=== PATIENT | male | born 1960 | race Caucasian/White ===

== ENCOUNTER 2017-02-20 19:04 | Emergency (ER) | payer OTHER ==
[2017-02-20] MEDS ORDERED: 0.9 % SODIUM CHLORIDE 1,000 ML IV ONE ×3 (19:18→22:53)
[2017-02-20] MEDS ORDERED: 0.9 % SODIUM CHLORIDE 1,000 ML IV SCH ×3 (19:30→23:00)
[2017-02-20 19:38] LABS: BASOPHILS % 0.6 (0.0-1.5); EOSINOPHILS % 1.4 % (0.0-6.8); MEAN CORPUSCULAR HEMOGLOBIN 29.8 pg (28.0-34.0); MEAN CORPUSCULAR VOLUME 90.4 fl (80.0-100.0); MONOCYTES % 6.5 % (0.0-11.0)
[2017-02-20 19:49] LABS: eGFR (African) > 60; eGFR (Non-African) > 60
[2017-02-20] MEDS ORDERED: INSULIN REGULAR, HUMAN 100 UNIT/ML 3ML VIAL IV ONE (20:17)
[2017-02-20] MEDS ORDERED: LEVOFLOXACIN 500MG/D5W 100ML 500 MG in PREMIX BAG 1 BAG IV ONE (20:20)
[2017-02-20] MEDS ORDERED: LEVOFLOXACIN 500MG/D5W 100ML 0 ML IV ONE (20:26)
[2017-02-20] MEDS ORDERED: DOXYCYCLINE MONOHYDRATE 100 MG CAPSULE PO ONE (20:42)
--- NOTE | 2017-02-20 21:36 | ED Physician Documentation ---
Chest Pain - HISTORIAN Historian: patient - HPI Stated Complaint: cold sym/chest pain Chief Complaint: Chest Pain Additional Information: sharp through and through pain mid sternum to mid back over last 24 hours Onset: days ago (1) Timing: sudden onset, still present Duration: sudden-onset Last known Well Date: 02/18/17 Last Known Well Time: 00:00 Last known Well Code/Unknown Code: Unknown Context: activity Severity: moderate Quality: sharp, stabbing Front/Back of Body, Lg (Color): 1 - pain 2 - pain Chest Pain Radiation: back Chest Pain Signs/Symptoms: diaphoresis, tachycardia, weakness. denies: nausea, vomiting, cool extremities, dizziness, dyspnea, tachypnea, hypotension, palpitations Worsened By: deep breaths Relieved By: rest Further Comments: no - ROS CONST: recent illness (head cold) MS/LYMPH: none GI/: abdominal pain, nausea EYES/ENT: denies: problems with vision, sore throat SKIN/ENDO: none NEURO/PSYCH: none - PAST HX MS risk factors: hypertension, diabetes Type 2, hyperlipidemia DVT/PE Risk Factors: none TAD/AAA risk factors: none Neuro deficit: none GI disease: GERD Lung disease: COPD Surgeries/Procedures: cardiac stent Immunizations: UTD Allergies/Adverse Reactions: Allergies Allergy/AdvReac Type Severity Reaction Status Date / Time amoxicillin Allergy Verified 02/20/17 19:19 ceftriaxone sodium Allergy Verified 02/20/17 19:19 [From Rocephin] erythromycin base Allergy Verified 02/20/17 19:19 exenatide [From Byetta] Allergy Verified 02/20/17 19:19 levofloxacin [From Levaquin] Allergy Verified 02/20/17 19:19 mushroom Allergy Verified 02/20/17 19:19 onion Allergy Verified 02/20/17 19:19 Penicillins Allergy Verified 02/20/17 19:19 pioglitazone HCl [From Actos] Allergy Verified 02/20/17 19:19 shellfish derived Allergy Verified 02/20/17 19:19 strawberry Allergy Verified 02/20/17 19:19 Sulfa (Sulfonamide Allergy Verified 02/20/17 19:19 Antibiotics) tomato Allergy Verified 02/20/17 19:19 tramadol Allergy Verified 02/20/17 19:19 Home Medications: Ambulatory Orders Medication Instructions Recorded Albuterol Sulfate [Proair 90 mcg IH QID 02/20/17 Respiclick] Aspirin EC [Ecotrin] 81 mg PO DAILY 02/20/17 Atorvastatin Calcium 40 mg PO HS 02/20/17 Blood-Glucose Calib. Control 1 each MC QID 02/20/17 [Accu-Chek] Citalopram Hydrobromide 40 mg PO DAILY 02/20/17 [Citalopram HBr] Clopidogrel Bisulfate [Clopidogrel] 75 mg PO DAILY 02/20/17 Cyclobenzaprine HCl 5 mg PO DAILY PRN 02/20/17 Diclofenac Sodium 100 gm TP BID 02/20/17 Epinephrine [Epipen 2-Edwin] 0.3 mg IM PRN PRN 02/20/17 Fluticasone Propionate [Flonase 1 spray NS DAILY 02/20/17 Nasal [place]] Gabapentin [Neurontin] 600 mg PO QID 02/20/17 HYDROmorphone HCL [Dilaudid] 4 mg PO Q4-6 PRN 02/20/17 Insulin NPH/Reg [Humulin 70-30 57 unit SQ 0730 02/20/17 Vial] Insulin NPH/Reg [Humulin 70-30 64 unit SQ 1700 02/20/17 Vial] Levothyroxine Sodium [Synthroid] 25 mcg PO 0700 02/20/17 Lisinopril [Zestril] 10 mg PO DAILY 02/20/17 Metformin HCl [Glucophage] 1,[place] [address] 02/20/17 Methotrexate Sodium [Rheumatrex] 10 mg PO WEEK 02/20/17 Metoprolol Tartrate [Lopressor] 25 mg PO BID 02/20/17 Multivitamin [Tab-A-Randall] 1 each PO DAILY 02/20/17 Nitroglycerin [Nitroquick] 0.4 mg SL Q5M 02/20/17 Omeprazole [Prilosec] 20 mg PO BID 02/20/17 SUMAtriptan SUCCINATE [Imitrex] 25 mg PO DIRECTED PRN 02/20/17 Topiramate [Topamax] 100 mg PO BID 02/20/17 Zolpidem Tartrate 10 mg PO HS 02/20/17 clonazePAM [Klonopin] 0.25 mg PO BID PRN 02/20/17 - SOCIAL HX Smoking History: cigarettes Alcohol Use: none Drug Use: none - FAMILY HX Family HX: other (dm) - VITAL SIGNS Vital Signs: Vital Signs Temp Pulse Resp BP Pulse Ox 98.4 F 102 H 16 128/97 96 02/20/17 19:05 02/20/17 19:05 02/20/17 19:05 02/20/17 19:05 02/20/17 19:05 - REVIEWED ASSESSMENTS Nursing Assessment Reviewed: Yes Vitals Reviewed: Yes Progress - Results/Orders Results/Orders: cbc, cmp, vbg, trop, amylase, ua, ekg, cxr ordered - Progress Progress: pt. given 2 1/2 liters ns in er, 20 units of humulin R, insulin drip at 7 units/ hr, D5 1/2 ns at 30 units/hr Critical Care Note - Critical Care Note Total Time (mins): 0 ED Results Lab/Radiology - Lab Results Lab Results: Lab Results 02/20/17 02/20/17 02/20/17 19:20 19:20 19:20 WBC 11.20 K/ul K/ul (4.00-12.00) RBC 4.90 M/ul M/ul (3.90-5.20) Hgb 14.6 g/dL g/dL (12.0-18.0) Hct 44.3 % % (37.0-53.0) MCV 90.4 fl fl (80.0-100.0) MCH 29.8 pg pg (28.0-34.0) MCHC 32.9 g/dL g/dL (30.0-36.0) RDW 13.4 % % (11.3-14.3) Plt Count 338 K/mm3 K/mm3 (130-400) Neut % (Auto) 62.5 % % (39.0-79.0) Lymph % (Auto) 27.7 % % (16.0-50.0) [place] % (Auto) 6.5 % % (0.0-11.0) Eos % (Auto) 1.4 % % (0.0-6.8) Baso % (Auto) 0.6 (0.0-1.5) Neut # 7.0 # k/uL # k/uL (1.4-7.7) Lymph # 3.1 # k/uL # k/uL (0.6-4.0) Gordon # 0.7 # k/uL # k/uL (0.0-0.9) Eos # 0.2 # k/uL # k/uL (0.0-0.6) Baso # 0.1 # k/uL # k/uL (0.0-0.5) Reactive Lymphs % 1.4 % % (0.0-5.0) Reactive Lymphs # 0.2 # k/uL # k/uL (0.0-0.8) Sodium 130 mmol/L L mmol/L (136-145) Potassium 3.8 mmol/L mmol/L (3.5-5.0) Chloride 96 mmol/L L mmol/L (98-110) Carbon Dioxide 28 mmol/L mmol/L (20-32) BUN 12 mg/dL mg/dL (10-26) Creatinine 1.1 mg/dL mg/dL (0.4-1.5) Est GFR ( Amer) > 60 (60 - ) Est GFR (Non-Af Amer) > 60 (60 - ) Glucose 514 mg/dL H mg/dL (70-99) Calcium 10.5 mg/dL mg/dL (8.5-10.5) Total Bilirubin 1.1 mg/dL mg/dL (0.2-1.2) AST 14 U/L U/L (0-41) ALT 17 U/L U/L (0-45) Alkaline Phosphatase 114 U/L U/L (46-116) Troponin I < 0.03 ng/mL L ng/mL (0.03-0.06) Total Protein 8.0 g/dL g/dL (6.0-8.5) Albumin 4.9 g/dL g/dL (3.0-5.5) - Radiology Radiology Impressions: cxr neg - Orders Orders: ED Orders Category Date Time Status Place Saline Lock/IV Now Care 02/20/17 19:13 Active CHEST 2 VIEW [CHEST P.A.&LAT 2 VIEWS] [RAD] Stat Exams 02/20/17 Taken AMYLASE Routine Lab 02/20/17 21:15 Received CBC/PLATELET/DIFF Routine Lab 02/20/17 19:20 Completed CMP Routine Lab 02/20/17 19:20 Completed TROPONIN I (cTnI) Routine Lab 02/20/17 19:20 Completed URINALYSIS Routine Lab 02/20/17 20:16 Ordered VENOUS BLOOD GAS Routine Lab 02/20/17 20:45 Received 0.9 % Sodium Chloride [Normal Saline] 1,000 ml Med 02/20/17 19:30 Ordered IV .Q1H 0.9 % Sodium Chloride [Normal Saline] 1,000 ml Med 02/20/17 20:30 Ordered IV .Q1H Doxycycline Monohydrate [Vibramycin] Med 02/20/17 20:42 Discontinued 100 mg PO NOW ONE Insulin Regular, Human [Humulin R] Med 02/20/17 20:17 Discontinued 20 unit IV NOW ONE Levofloxacin 500Mg/D5w 100Ml [Levaquin] 100 ml Med 02/20/17 20:26 Discontinued IV .STK-MED Levofloxacin 500Mg/D5w 100Ml [Levaquin] 500 mg Med 02/20/17 20:20 Discontinued Premix Bag [Premix Fluid] 1 bag IV NOW EKG WITH COMPARISON Routine Ther 02/20/17 Ordered Chest Pain Physical Exam - EXAM General Appearance: alert, moderate distress, hyperventilating (on presentation) EENT: eye inspection normal, ENT inspection normal, pharynx normal, no signs of dehydration, MINNIE, no nystagmus, TM's nml Neck: nml inspection Respiratory: chest non-tender, nml breath sounds, other (tachypnia). No: decreased air movement, wheezes, rales, rhonchi CVS: reg. rate & rhythm. No: no murmur, no gallop, no friction rub Abdomen: soft, no organomegaly, normal bowel sounds, tenderness (epigastrium) Skin: warm/dry, normal color Extremities: non-tender, normal range of motion, no evidence of injury, no edema Neuro: oriented X3, CN's nml as tested, motor nml, sensation nml, mood/affect nml, cognition normal Discharge Clincal Impression: DKA (diabetic ketoacidoses) Qualifiers: Diabetes mellitus type: type 2 Diabetes mellitus complication detail: without coma Qualified Code(s): E13.10 - Other specified diabetes mellitus with ketoacidosis without coma Home Medications: Ambulatory Orders Albuterol Sulfate [Proair Respiclick] 90 mcg IH QID 02/20/17 Aspirin EC [Ecotrin] 81 mg PO DAILY 02/20/17 Atorvastatin Calcium 40 mg PO HS 02/20/17 Blood-Glucose Calib. Control [Accu-Chek] 1 each MC QID 02/20/17 Citalopram Hydrobromide [Citalopram HBr] 40 mg PO DAILY 02/20/17 Clopidogrel Bisulfate [Clopidogrel] 75 mg PO DAILY 02/20/17 Cyclobenzaprine HCl 5 mg PO DAILY PRN 02/20/17 Diclofenac Sodium 100 gm TP BID 02/20/17 Epinephrine [Epipen 2-[place]] 0.3 mg IM PRN PRN 02/20/17 Fluticasone Propionate [Flonase Nasal [place]] 1 spray NS DAILY 02/20/17 Gabapentin [Neurontin] 600 mg PO QID 02/20/17 HYDROmorphone HCL [Dilaudid] 4 mg PO Q4-6 PRN 02/20/17 Insulin NPH/Reg [Humulin 70-30 Vial] 57 unit SQ 0730 02/20/17 Insulin NPH/Reg [Humulin 70-30 Vial] 64 unit SQ 1700 02/20/17 Levothyroxine Sodium [Synthroid] 25 mcg PO 0700 02/20/17 Lisinopril [Zestril] 10 mg PO DAILY 02/20/17 Metformin HCl [Glucophage] 1,000 [place] [address] 02/20/17 Methotrexate Sodium [Rheumatrex] 10 mg PO WEEK 02/20/17 Metoprolol Tartrate [Lopressor] 25 mg PO BID 02/20/17 Multivitamin [Tab-A-Rand[place]] 1 each PO DAILY 02/20/17 Nitroglycerin [Nitroquick] 0.4 mg SL Q5M 02/20/17 Omeprazole [Prilosec] 20 mg PO BID 02/20/17 SUMAtriptan SUCCINATE [Imitrex] 25 mg PO DIRECTED PRN 02/20/17 Topiramate [Topamax] 100 mg PO BID 02/20/17 Zolpidem Tartrate 10 mg PO HS 02/20/17 clonazePAM [Klonopin] 0.25 mg PO BID PRN 02/20/17 Comments: Case discussed with Dr. Pedraza who accepts transfer. Condition: Stable Disposition: 01 HOME, SELF-CARE Decision to Admit: NO Decision Time: 00:10
[2017-02-20] MEDS ORDERED: KETOROLAC TROMETHAMINE 30 MG/1ML VIAL IVP ONE (21:37)
[2017-02-20] MEDS ORDERED: INSULIN REGULAR, HUMAN 100 UNIT in 0.9 % SODIUM CHLORIDE 100 ML IV ONE ×2 (22:47)
[2017-02-20] MEDS ORDERED: 0.9 % SODIUM CHLORIDE 50 ML IV ONE (22:52)
[2017-02-20] MEDS ORDERED: DEXTROSE 5 %-0.45 % NACL 1,000 ML IV ONE (22:53)
[2017-02-20] MEDS ORDERED: DEXTROSE 5 %-0.45 % NACL 1,000 ML IV SCH (23:00)
[2017-02-21] MEDS ORDERED: INSULIN REGULAR, HUMAN 100 UNIT in 0.9 % SODIUM CHLORIDE 100 ML IV ONE ×2
--- NOTE | 2017-02-21 00:32 | Diagnostic Imaging Report ---
CHRISTOPH CUTLER~ [facility] [address] [address] ~ ~ ~ ~ Report Submission Date: Feb 20, 2017 8:05:33 PM CDT Patient ~ Study Name: CHAITANYA WARE ~ Date: Feb 20, 2017 7:46:43 PM CDT ~ Modality Type: CR Gender: M ~ Description: CHEST : 62 ~ Institution: [facility] Physician: CHRISTOPH CUTLER ~ ~ ~ ~ Chest -two views CLINICAL HISTORY: ~ Chest pain for 1 day. ~ FINDINGS: ~ Examination of the chest in PA and lateral views with no prior film for comparison demonstrates the lungs to be clear. ~Cardiovascular and mediastinal silhouettes are within normal limits for the patient's age. ~The aorta is atherosclerotic. ~Monitor leads superimpose the chest. IMPRESSION: ~ Aortic atherosclerosis. ~ No active disease. ~ Electronically signed on Feb 20, 2017 8:05:33 PM CDT by: Isaias RAYMUNDO
[2017-02-21] MEDS ORDERED: DEXTROSE 5 %-0.45 % NACL 1,000 ML IV SCH (00:48)
[2017-02-21 02:21] VITALS: BP 110/69
[2017-02-21 05:49] LABS: PH BG VENOUS 7.11 (7.32-7.43)
[2017-02-21 05:52] LABS: APPEARANCE,URINE CLEAR (CLEAR); COLOR,URINE YELLOW (YELLOW); OCCULT BLOOD,URINE NEGATIVE (NEGATIVE); PH URINE 5.5 (5.0 - 8.0); UROBILINOGEN URINE 0.2 Eu (0.2-1.0)
== END 2017-02-21 01:20 | disposition home or self-care (01) ==
LOC: ED 19:04 → EDSTATUS 19:05 → ED 02-21 01:20
DX: E13.10 Other specified diabetes mellitus with ketoacidosis without coma (principal)
CPT/HCPCS: 36415; 71020; 80053; 81002; 82150; 82805; 84484; 85025; 93005; 96361; 96365; 99284; J1815; J1885; J7030; J1956; S1016; S5010

== ENCOUNTER 2017-07-11 20:48 | Emergency (ER) | payer OTHER ==
--- NOTE | 2017-07-11 21:34 | ED Physician Documentation ---
General Adult - HISTORIAN Historian: patient - HPI Stated Complaint: Pt states was in basement a week ago and possible spider bite to finger Chief Complaint: General Adult Onset: days ago (7 days) Timing: still present Context: believes that he was bitten by a spider Location: Left 4th finger Further Comments: yes (One week ago was working in a basement and was bit by something, not sure what. Has been continueing to bother him.) - ROS CONST: no problems. denies: fever - PAST HX Past History: other (CAD, fibromyalgia, chronic low back pain, Htn, DM type 2, depression, GERDs, hyperlipidemia, Neuropathy, RA, seizure disorder, peripheral neuropathy) Surgeries/Procedures: cholecystectomy, other (ulnar nerve release, cholecystectomy, appendectomy, benign breast tumor) Allergies/Adverse Reactions: Allergies Allergy/AdvReac Type Severity Reaction Status Date / Time amoxicillin Allergy Verified 07/11/17 21:07 ceftriaxone sodium Allergy Verified 07/11/17 21:07 [From Rocephin] erythromycin base Allergy Verified 07/11/17 21:07 exenatide [From [place]] Allergy Verified 07/11/17 21:07 levofloxacin [From Levaquin] Allergy Verified 07/11/17 21:07 mushroom Allergy Verified 07/11/17 21:07 onion Allergy Verified 07/11/17 21:07 Penicillins Allergy Verified 07/11/17 21:07 pioglitazone HCl [From Actos] Allergy Verified 07/11/17 21:07 shellfish derived Allergy Verified 07/11/17 21:07 strawberry Allergy Verified 07/11/17 21:07 Sulfa (Sulfonamide Allergy Verified 07/11/17 21:07 Antibiotics) tomato Allergy Verified 07/11/17 21:07 tramadol Allergy Verified 07/11/17 21:07 Home Medications: Ambulatory Orders Medication Instructions Recorded Albuterol Sulfate [Proair 90 mcg IH QID 02/20/17 Respiclick] Aspirin EC [Ecotrin] 81 mg PO DAILY 02/20/17 Atorvastatin Calcium 40 mg PO HS 02/20/17 Blood-Glucose Calib. Control 1 each MC QID 02/20/17 [Accu-Chek] Citalopram Hydrobromide 40 mg PO DAILY 02/20/17 [Citalopram HBr] Clopidogrel Bisulfate [Clopidogrel] 75 mg PO DAILY 02/20/17 Cyclobenzaprine HCl 5 mg PO DAILY PRN 02/20/17 Diclofenac Sodium 100 gm TP BID 02/20/17 Epinephrine [Epipen 2-[place]] 0.3 mg IM PRN PRN 02/20/17 Fluticasone Propionate [Flonase 1 spray NS DAILY 02/20/17 Nasal [place]] Gabapentin [Neurontin] 600 mg PO QID 02/20/17 HYDROmorphone HCL [Dilaudid] 4 mg PO Q4-6 PRN 02/20/17 Insulin NPH/Reg [Humulin 70-30 57 unit SQ 0730 02/20/17 Vial] Insulin NPH/Reg [Humulin 70-30 64 unit SQ 1700 02/20/17 Vial] Lisinopril [Zestril] 10 mg PO DAILY 02/20/17 Metformin HCl [Glucophage] 1,[place] [address] 02/20/17 Methotrexate Sodium [Rheumatrex] 10 mg PO WEEK 02/20/17 Metoprolol Tartrate [Lopressor] 25 mg PO BID 02/20/17 Multivitamin [Tab-A-Rand[place]] 1 each PO DAILY 02/20/17 Nitroglycerin [Nitroquick] 0.4 mg SL Q5M 02/20/17 Omeprazole [Prilosec] 20 mg PO BID 02/20/17 SUMAtriptan SUCCINATE [Imitrex] 25 mg PO DIRECTED PRN 02/20/17 Topiramate [Topamax] 100 mg PO BID 02/20/17 Zolpidem Tartrate 10 mg PO HS 02/20/17 Clonazepam 0.5 mg PO BID PRN 07/11/17 Doxycycline Hyclate [Vibra-Tabs] 100 mg PO BID #14 tablet 07/11/17 - SOCIAL HX Smoking History: less than 1 pack/day (7 cigarettes daily) Alcohol Use: none Drug Use: none - FAMILY HX Family History: Yes - VITAL SIGNS Vital Signs: Vital Signs Temp Pulse Resp BP Pulse Ox 98.8 F 87 18 144/84 96 07/11/17 20:49 07/11/17 20:49 07/11/17 20:49 07/11/17 20:49 07/11/17 20:49 - REVIEWED ASSESSMENTS Nursing Assessment Reviewed: Yes Vitals Reviewed: Yes General Adult Physical Exam - PHYSICAL EXAM GENERAL APPEARANCE: no distress NECK: No: lymphadenopathy RESPIRATORY: no resp distress, chest non-tender, breath sounds normal. No: wheezes, rales, rhonchi CVS: reg rate & rhythm, heart sounds normal, equal pulses, no murmur, no gallop SKIN: other (4th finger, lateral aspect on left hand, 2mm open area with 2cm of surrounding erythema, mild tenderness) NEURO: oriented X3, mood/affect nml, cognition normal Discharge Clincal Impression: Spider bite wound Prescriptions: Doxycycline Hyclate [Vibra-Tabs] 100 mg PO BID #14 tablet Referrals: Primary Doctor,No [Primary Care Provider] - 2 Days Additional Instructions: Take Doxycycline twice a day as directed. Watch for spreading of redness or swelling. If you do not have some continuing healing to the wound have it reevaluated in 5 days. Condition: Stable Disposition: 01 HOME, SELF-CARE Decision to Admit: NO Date of Decison to Admit: 07/11/17 Decision Time: 21:48
[2017-07-11] MEDS ORDERED: DOXYCYCLINE MONOHYDRATE 100 MG CAPSULE PO ONE (22:04)
[2017-07-12 02:26] VITALS: BP 136/72
[2017-07-12] MEDS ORDERED: DOXYCYCLINE MONOHYDRATE 100 MG CAPSULE PO ONE (21:44)
== END 2017-07-11 22:15 | disposition home or self-care (01) ==
LOC: ED 20:48
DX: T63.301A Toxic effect of unspecified spider venom, accidental (unintentional), initial encounter (principal); X58.XXXA Exposure to other specified factors, initial encounter; Y93.9 Activity, unspecified; Y99.9 Unspecified external cause status
CPT/HCPCS: 99283

== ENCOUNTER 2018-03-21 17:17 | Emergency (ER) | payer OTHER ==
--- NOTE | 2018-03-21 17:45 | ED Physician Documentation ---
Seizure - HISTORIAN Historian: patient, child (arlin in law) - HPI Chief Complaint: Seizure Additional Information: pt shopping [place] w/ Arlin IN LAW alert became slight somnolent began shaking chest arms fell hit occiput momentarily unconscious EMS stated he appeared post ictal on arrival. last seizure 2 weeks ago-last severe seizure in november. sl lethargic now but appropriate has headache "like i have when i have seizures and felt it was coming on beforehand" takes topamax 100hs. orthostatics ok as attached. Timing/Onset/Duration: other (arlin in law est out 5-10 plus minutes) Last known Well Date: 03/21/18 Last Known Well Time: 17:05 Last known Well Code/Unknown Code: Known Witnessed By: family, bystander Character of Seizure(s): lost consciousness, unresponsiveness, shaking in one area (upper body lprior to fall). denies: incontinence of urine, incontinence of stool, stopped breathing Postictal Symptoms: confusion Location of Injury: head, neck - ROS NEURO/PSYCH: headache, other (sl lethargic took dilaudid approx 1 hr prior to evand-for chronic back pain) EYES/ENT: none CVS/RESP: none GI/: adominal pain. denies: nausea, vomiting (desires milk - drank two) MS/SKIN/LYMPH: none ( rt arm in cast from recent nerve traansplant MUM) - PAST HX Previous seizure/seizure disorder: frequent, long-standing Etiology: idiopathic Other History: diabetes Type 1 (RA NEUROPATHY FIBROMYALGIA MC OK X 3 RNAL FILURE-MILD) Surgeries/Procedures: other (NERVE TRANSPLANT RT ARM APPY GB CA LT BREAST=- CHEMO SPIDER BITE LOW ABDOMEN RECENT APPARENTLY NOT MRSA 4 STENTS FX BACK) Allergies/Adverse Reactions: Allergies Allergy/AdvReac Type Severity Reaction Status Date / Time amoxicillin Allergy Verified 03/21/18 17:52 ceftriaxone sodium Allergy Verified 03/21/18 17:52 [From Rocephin] erythromycin base Allergy Verified 03/21/18 17:52 exenatide [From [place]] Allergy Verified 03/21/18 17:52 levofloxacin [From Levaquin] Allergy Verified 03/21/18 17:52 mushroom Allergy Verified 03/21/18 17:52 onion Allergy Verified 03/21/18 17:52 Penicillins Allergy Verified 03/21/18 17:52 pioglitazone HCl [From Actos] Allergy Verified 03/21/18 17:52 shellfish derived Allergy Verified 03/21/18 17:52 strawberry Allergy Verified 03/21/18 17:52 Sulfa (Sulfonamide Allergy Verified 03/21/18 17:52 Antibiotics) tomato Allergy Verified 03/21/18 17:52 tramadol Allergy Verified 03/21/18 17:52 Home Medications: Ambulatory Orders Medication Instructions Recorded Albuterol Sulfate [Proair 90 mcg IH QID 02/20/17 Respiclick] Aspirin EC [Ecotrin] 81 mg PO DAILY 02/20/17 Atorvastatin Calcium 40 mg PO HS 02/20/17 Blood-Glucose Calib. Control 1 each MC QID 02/20/17 [Accu-Chek] Citalopram Hydrobromide 40 mg PO DAILY 02/20/17 [Citalopram HBr] Clopidogrel Bisulfate [Clopidogrel] 75 mg PO DAILY 02/20/17 Cyclobenzaprine HCl 5 mg PO DAILY PRN 02/20/17 Diclofenac Sodium 100 gm TP BID 02/20/17 Epinephrine [Epipen 2-[place]] 0.3 mg IM PRN PRN 02/20/17 Fluticasone Propionate [Flonase 1 spray NS DAILY 02/20/17 Nasal [place]] Gabapentin [Neurontin] 600 mg PO QID 02/20/17 HYDROmorphone HCL [Dilaudid] 4 mg PO Q4-6 PRN 02/20/17 Insulin NPH/Reg [Humulin 70-30 57 unit SQ 0730 02/20/17 Vial] Insulin NPH/Reg [Humulin 70-30 64 unit SQ 1700 02/20/17 Vial] Lisinopril [Zestril] 10 mg PO DAILY 02/20/17 Metformin HCl [Glucophage] 1,[place] [address] 02/20/17 Methotrexate Sodium [Rheumatrex] 10 mg PO WEEK 02/20/17 Metoprolol Tartrate [Lopressor] 25 mg PO BID 02/20/17 Multivitamin [Tab-A-Randall] 1 each PO DAILY 02/20/17 Nitroglycerin [Nitroquick] 0.4 mg SL Q5M 02/20/17 Omeprazole [Prilosec] 20 mg PO BID 02/20/17 SUMAtriptan SUCCINATE [Imitrex] 25 mg PO DIRECTED PRN 02/20/17 Topiramate [Topamax] 100 mg PO BID 02/20/17 Zolpidem Tartrate 10 mg PO HS 02/20/17 Clonazepam 0.5 mg PO BID PRN 07/11/17 - SOCIAL HX Smoking History: less than 1 pack/day Alcohol Use: rarely Drug Use: none - FAMILY HX Family History: none - VITAL SIGNS Vital Signs: Vital Signs Temp Pulse Resp BP Pulse Ox 98.4 F 73 14 104/63 98 03/21/18 17:20 03/21/18 17:23 03/21/18 17:20 03/21/18 17:23 03/21/18 17:20 - REVIEWED ASSESSMENTS Nursing Assessment Reviewed: Yes Vitals Reviewed: Yes ED Results Lab/Radiology - Lab Results Lab Results: Lab Results 03/21/18 03/21/18 17:41 17:41 WBC 9.80 K/ul K/ul (4.00-12.00) RBC 4.09 M/ul M/ul (3.90-5.20) Hgb 10.4 g/dL L g/dL (12.0-18.0) Hct 36.0 % L % (37.0-53.0) MCV 88.0 fl fl (80.0-100.0) MCH 25.5 pg L pg (28.0-34.0) MCHC 29.0 g/dL L g/dL (30.0-36.0) RDW 14.3 % % (11.3-14.3) Plt Count 530 K/mm3 H K/mm3 (130-400) Neut % (Auto) 54.5 % % (39.0-79.0) Lymph % (Auto) 34.6 % % (16.0-50.0) [place] % (Auto) 5.4 % % (0.0-11.0) Eos % (Auto) 3.2 % % (0.0-6.8) Baso % (Auto) 0.6 (0.0-1.5) Neut # (Auto) 5.3 # k/uL # k/uL (1.4-7.7) Lymph # (Auto) 3.4 # k/uL # k/uL (0.6-4.0) [place] # (Auto) 0.5 # k/uL # k/uL (0.0-0.9) Eos # (Auto) 0.3 # k/uL # k/uL (0.0-0.6) Baso # (Auto) 0.0 # k/uL # k/uL (0.0-0.5) Reactive Lymphs % 1.8 % % (0.0-5.0) Reactive Lymphs # 0.2 # k/uL # k/uL (0.0-0.8) Sodium 142 mmol/L mmol/L (136-145) Potassium 4.1 mmol/L mmol/L (3.5-5.1) Chloride 107 mmol/L mmol/L (98-107) Carbon Dioxide 23 mmol/L mmol/L (22-30) BUN 17 mg/dL mg/dL (9-20) Creatinine 1.20 mg/dL mg/dL (0.66-1.25) Estimated Creat Clear 68 Est GFR ( Amer) > 60 (60 - ) Est GFR (Non-Af Amer) > 60 (60 - ) Glucose 67 mg/dL L mg/dL (74-106) Calcium 10.0 mg/dL mg/dL (8.4-10.2) Total Bilirubin 0.2 mg/dL mg/dL (0.2-1.3) AST 24 U/L U/L (15-46) ALT 29 U/L U/L (13-69) Alkaline Phosphatase 95 U/L U/L (38-126) Total Protein 7.4 g/dL g/dL (6.3-8.2) Albumin 4.1 g/dL g/dL (3.5-5.0) - Orders Orders: ED Orders Category Date Time Status Orthostatics 1T Care 03/21/18 17:[address] IV Lock 1T Care 03/21/18 17:23 Active CBC/PLATELET/DIFF Routine Lab 03/21/18 17:41 Completed CMP Stat Lab 03/21/18 17:41 Completed Chem Sticks Med 03/21/18 17:24 Discontinued 1 each NOW ONE EKG WITH COMPARISON Stat Ther 03/21/18 Ordered Seizure Physical Exam - Physical Exam General Appearance: mild distress, lethargic Altered Mental Status Higher Functions: oriented x3 Neck/Back: normal inspection, thyroid normal, supple Respiratory: no resp. distress, breath sounds nml, no evidence of rib injury CVS: reg rate & rhythm, heart sounds normal Abdomen: non-tender Skin: warm/dry, normal color. No: cyanosis, diaphoresis Extremities: normal range of motion, non-tender Observed Seizure Activity in ED: focal (UPPER BODY) - Nexus Criteria Neg Nexus Criteria: Nexus criteria neg. denies: midline tenderness, distracting injury Discharge Clincal Impression: seizure-hx freq seizures, hypo glycemia perhaps cont to seizure, chronic pain pt-on dilaudid, diabetes mellitus Referrals: Primary Doctor,No [REFERRING] - 2 Days Comments: ome balanced diet freq fsbs Condition: Good Disposition: 01 HOME, SELF-CARE Decision to Admit: NO Decision Time: 18:59
[2018-03-21 17:59] LABS: BASOPHILS % 0.6 (0.0-1.5); EOSINOPHILS % 3.2 % (0.0-6.8); MEAN CORPUSCULAR HEMOGLOBIN 25.5 pg (28.0-34.0); MONOCYTES % 5.4 % (0.0-11.0); NEUTROPHILS # 5.3 # k/uL (1.4-7.7)
[2018-03-21 18:03] LABS: eGFR (African) > 60; eGFR (Non-African) > 60
[2018-03-21 20:00] VITALS: BP 102/84
== END 2018-03-21 19:30 | disposition home or self-care (01) ==
LOC: ED 17:17
DX: G40.909 Epilepsy, unspecified, not intractable, without status epilepticus (principal); R73.9 Hyperglycemia, unspecified; G89.29 Other chronic pain
CPT/HCPCS: 80053; 85025; S1016

== ENCOUNTER 2018-05-08 17:14 | Emergency (ER) | payer OTHER ==
[2018-05-08] MEDS ORDERED: ASPIRIN 81 MG CHEW TAB PO ONE (17:37)
--- NOTE | 2018-05-08 17:37 | ED Physician Documentation ---
Chest Pain - HISTORIAN Historian: patient - HPI Stated Complaint: CHEST PAIN Chief Complaint: Chest Pain Additional Information: 57 yo white male with a several hour history of substernal chest with radiation into the back. No precipatating factor noted. No cough noted. No fever or chill noted. Worse with breathing. Has a history of CAD, states this pain feels similar to that. 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 Last stress test was normal several years ago. Has not taken any nitroglycerine or aspirin. Has diabetes type 2, has been running high in the [facility] for several months. Has been taking sliding scale insulin and levemir. Has also developed a headache to the bilateral frontal area. No history of head trauma. Timing: sudden onset, still present Duration: waxing, waning, persistent Last known Well Date: 05/08/18 Last Known Well Time: 14:30 Context: rest Severity: moderate Chest Pain Radiation: other (intrascapualr area) Chest Pain Signs/Symptoms: diaphoresis (mild). denies: nausea, vomiting, palpitations Worsened By: deep breaths, movement Relieved By: nothing - ROS CONST: none. denies: fever, chills GI/: denies: abdominal pain, problems urinating, vomiting, nausea, diarrhea - PAST HX AL risk factors: hypertension, diabetes Type 2, cardiac disease, other (RA , fibromyalgia) DVT/PE Risk Factors: none TAD/AAA risk factors: none Neuro deficit: none GI disease: none Lung disease: denies: COPD, pneumothorax Surgeries/Procedures: cholecysectomy, appendectomy, other (benign left breast bx , embolectomy, tonsilectomy, sinus surgery x3) Allergies/Adverse Reactions: Allergies Allergy/AdvReac Type Severity Reaction Status Date / Time amoxicillin Allergy Verified 03/21/18 17:52 ceftriaxone sodium Allergy Verified 03/21/18 17:52 [From Rocephin] erythromycin base Allergy Verified 03/21/18 17:52 exenatide [From [place]] Allergy Verified 03/21/18 17:52 levofloxacin [From Levaquin] Allergy Verified 03/21/18 17:52 mushroom Allergy Verified 03/21/18 17:52 onion Allergy Verified 03/21/18 17:52 Penicillins Allergy Verified 03/21/18 17:52 pioglitazone HCl [From Actos] Allergy Verified 03/21/18 17:52 shellfish derived Allergy Verified 03/21/18 17:52 strawberry Allergy Verified 03/21/18 17:52 Sulfa (Sulfonamide Allergy Verified 03/21/18 17:52 Antibiotics) tomato Allergy Verified 03/21/18 17:52 tramadol Allergy Verified 03/21/18 17:52 Home Medications: Ambulatory Orders Medication Instructions Recorded Albuterol Sulfate [Proair 90 mcg IH QID 02/20/17 Respiclick] Aspirin EC [Ecotrin] 81 mg PO DAILY 02/20/17 Atorvastatin Calcium 40 mg PO HS 02/20/17 Blood-Glucose Calib. Control 1 each MC QID 02/20/17 [Accu-Chek] Citalopram Hydrobromide 40 mg PO DAILY 02/20/17 [Citalopram HBr] Clopidogrel Bisulfate [Clopidogrel] 75 mg PO DAILY 02/20/17 Cyclobenzaprine HCl 5 mg PO DAILY PRN 02/20/17 Diclofenac Sodium 100 gm TP BID 02/20/17 Epinephrine [Epipen 2-[place]] 0.3 mg IM PRN PRN 02/20/17 Fluticasone Propionate [Flonase 1 spray NS DAILY 02/20/17 Nasal [place]] Gabapentin [Neurontin] 600 mg PO QID 02/20/17 HYDROmorphone HCL [Dilaudid] 4 mg PO Q4-6 PRN 02/20/17 Insulin NPH/Reg [Humulin 70-30 57 unit SQ 0730 02/20/17 Vial] Insulin NPH/Reg [Humulin 70-30 64 unit SQ 1700 02/20/17 Vial] Lisinopril [Zestril] 10 mg PO DAILY 02/20/17 Metformin HCl [Glucophage] 1,000 [place] [address] 02/20/17 Methotrexate Sodium [Rheumatrex] 10 mg PO WEEK 02/20/17 Metoprolol Tartrate [Lopressor] 25 mg PO BID 02/20/17 Multivitamin [Tab-A-Randall] 1 each PO DAILY 02/20/17 Nitroglycerin [Nitroquick] 0.4 mg SL Q5M 02/20/17 Omeprazole [Prilosec] 20 mg PO BID 02/20/17 SUMAtriptan SUCCINATE [Imitrex] 25 mg PO DIRECTED PRN 02/20/17 Topiramate [Topamax] 100 mg PO BID 02/20/17 Zolpidem Tartrate 10 mg PO HS 02/20/17 Clonazepam 0.5 mg PO BID PRN 07/11/17 - SOCIAL HX Smoking History: less than 1 pack/day Alcohol Use: none Drug Use: none - FAMILY HX Family HX: CAD over 55, other (father) - VITAL SIGNS Vital Signs: Vital Signs Temp Pulse Resp BP Pulse Ox 98.1 F 80 18 132/74 95 05/08/18 17:15 05/08/18 17:15 05/08/18 17:15 05/08/18 17:15 05/08/18 17:15 - REVIEWED ASSESSMENTS Nursing Assessment Reviewed: Yes Vitals Reviewed: Yes Progress - Progress Progress: 18:08 Chest pain is better, almost gone. Is still having a headache. 19:00 Patient states that chest pain is gone, still having headache, last blood sugar is done to 106 20:00 No chest pain at this time. ED Results Lab/Radiology - Radiology Radiology Impressions: PA and lateral chest History: Dyspnea PA and lateral chest dated May 08, 2018 demonstrates bilateral nipple piercings. The cardiomediastinal silhouette is unremarkable aside from minor aortic atherosclerosis. Pulmonary vascularity is normal. Lungs are clear. Impression: No active disease. Chest Pain Physical Exam - EXAM General Appearance: alert, moderate distress, anxious EENT: eye inspection normal, ENT inspection normal, pharynx normal, no signs of dehydration Neck: nml inspection, no carotid bruit, JVD present. No: lymphadenopathy, subcutaneous emphysema Respiratory: no resp. distress, chest non-tender, nml breath sounds. No: resp.distress, manifests distinct pain on movement (no chest wall tenderness noted.), wheezes, rales, rhonchi CVS: reg. rate & rhythm, no murmur, no gallop, no friction rub, pulses full Abdomen: soft, no organomegaly, normal bowel sounds, no abdominal bruit, no distension, non-tender Skin: warm/dry, normal color Extremities: no edema Neuro: oriented X3, CN's nml as tested, mood/affect nml, cognition normal, weakness/sensory loss (LUE, patient states due to nerve intrapment) Discharge Clincal Impression: Pleuritic chest pain Referrals: Ryder Colunga MD [Primary Care Provider] - 2 Days Additional Instructions: Take Aleve 220mg, 1-2 tablets twice a day or Ibuprofen 200mg 2 tablets three times a day. Try applying a warm compress to the area of pain if it returns. Make sure you eat and continue to monitor your blood sugars. Follow up with your primary care provider next week. Return to the ED if needed. Condition: Stable Disposition: 01 HOME, SELF-CARE Decision to Admit: NO Date of Decison to Admit: 05/08/18 Decision Time: 18:55
[2018-05-08] MEDS ORDERED: ASPIRIN 81 MG CHEW TAB ONE (17:45)
[2018-05-08] MEDS ORDERED: INSULIN REGULAR, HUMAN 100 UNIT/ML 3ML VIAL IV ONE (17:53)
[2018-05-08] MEDS ORDERED: 0.9 % SODIUM CHLORIDE 1,000 ML IV ONE (17:54)
[2018-05-08] MEDS ORDERED: 0.9 % SODIUM CHLORIDE 1,000 ML IV SCH (18:00)
[2018-05-08 18:10] LABS: eGFR (African) > 60; eGFR (Non-African) > 60
[2018-05-08] MEDS ORDERED: ACETAMINOPHEN 325 MG TABLET PO ONE (18:11)
[2018-05-08 18:15] LABS: BASOPHILS % 0.6 (0.0-1.5); EOSINOPHILS % 3.3 % (0.0-6.8); MEAN CORPUSCULAR HEMOGLOBIN 24.2 pg (28.0-34.0); MEAN CORPUSCULAR VOLUME 79.9 fl (80.0-100.0); MONOCYTES % 6.7 % (0.0-11.0); NEUTROPHILS # 4.4 # k/uL (1.4-7.7)
[2018-05-08] MEDS ORDERED: ONDANSETRON HCL/PF 4 MG/ 2ML VIAL ONE (18:45)
[2018-05-08] MEDS ORDERED: ONDANSETRON HCL/PF 4 MG/ 2ML VIAL IVP ONE (18:46)
--- NOTE | 2018-05-08 19:39 | Diagnostic Imaging Report ---
MILES WEBSTER [facility] [id number] [facility].[address] [id number] Report Submission Date: May 08, 2018 6:45:21 PM CDT Patient Study Name: CHAITANYA WARE Date: May 08, 2018 6:26:33 PM CDT Modality Type: DX Gender: M Description: CHEST : 62 Institution: [facility] Physician: MILES WEBSTER PA and lateral chest History: Dyspnea PA and lateral chest dated May 08, 2018 demonstrates bilateral nipple piercings. The cardiomediastinal silhouette is unremarkable aside from minor aortic atherosclerosis. Pulmonary vascularity is normal. Lungs are clear. Impression: No active disease. Electronically signed on May 08, 2018 6:45:21 PM CDT by: Carey RAYMUNDO
[2018-05-08 22:53] VITALS: BP 127/71
[2018-05-09 07:29] LABS: APPEARANCE,URINE CLEAR (CLEAR); COLOR,URINE YELLOW (YELLOW); OCCULT BLOOD,URINE NEGATIVE (NEGATIVE); PH URINE 8.5 (5.0 - 8.0); UROBILINOGEN URINE 0.2 Eu (0.2-1.0)
[2018-05-10 07:51] LABS: ABG BASE EXCESS 4.5 (-2 - +2); ABG PH 7.56 (7.35-7.45)
== END 2018-05-08 20:50 | disposition home or self-care (01) ==
LOC: ED 17:14
DX: R07.1 Chest pain on breathing (principal)
CPT/HCPCS: 71046; 80053; 81002; 84484; 85025; 85379; J1815; J2405; J7030; 36600; 82803; 96365; 96366; 96375; S1016